=== PATIENT | male | born 1930 | race Caucasian/White ===

== ENCOUNTER 2017-03-13 17:21 | Inpatient (IN) | payer MEDICARE ==
[~2017-03-13] VITALS: Ht 185.4 cm; Wt 83.0 kg
[2017-03-13] MEDS ORDERED: IV NORMAL SALINE 1000ML BAG 1,000 ML IV SCH (17:46)
[2017-03-13] MEDS ORDERED: ONDANSETRON PF 4 MG/2 ML VIAL. IV ONE (18:00)
[2017-03-13] MEDS ORDERED: IPRATRPIUM/ALBUTEROL 0.5/2.5MG 3 ML NEBU. NEB ONE (18:00)
[2017-03-13 18:01] LABS: BASO % 0 % (0-3); EOS % 0 % (0-3); HEMATOCRIT 36.3 % (39.0-53.0); HEMOGLOBIN 11.7 g/dL (13.0-17.5); LYMPH # 0.5 x10^3/uL (1.0-4.8); LYMPH % 3 % (24-48); MEAN CORPUSCULAR HEMOGLOBIN 31 pg (25-35); MEAN CORPUSCULAR HGB CONC 32 g/dL (31-37); MEAN CORPUSCULAR VOLUME 95 fL (79-100); MONO % 4 % (0-9); NEUT % 93 % (31-73); PLATELET COUNT 184 x10^3/uL (140-400); RED BLOOD COUNT 3.82 x10^6/uL (4.30-5.70); RED CELL DISTRIBUTION WIDTH 14.9 % (11.5-14.5); WHITE BLOOD COUNT 14.8 x10^3/uL (4.0-11.0)
--- NOTE | 2017-03-13 18:08 | EKG ---
[facility] [address] [place] [address] Test Date: 2017-03-13 Test Time: 18:05:19 Pat Name: MONIQUE COFFEY Department: Room: Gender: Male Die Turner: : 1930 Requested By: VIVIANA LEHMAN Order Number: [id number] Reading MD: Shannon Russell Measurements Intervals [place] Rate: 104 P: -56 WV: 124 QRS: 81 QRSD: 90 T: 76 QT: 334 QTc: 445 Interpretive Statements NORMAL ECG RI6.01 No previous ECG available for comparison Electronically Signed On 03-16-2017 17:43:51 CDT by Shannon Russell
[2017-03-13 18:12] LABS: PROTHROMBIN TIME PATIENT 12.3 SEC (11.7-14.0)
[2017-03-13 18:14] LABS: CALCIUM 9.1 mg/dL (8.5-10.1); CREATININE 1.3 mg/dL (0.7-1.3); GFR 52.3; POTASSIUM 3.3 mmol/L (3.5-5.1)
[2017-03-13 18:19] LABS: ALBUMIN 3.6 g/dL (3.4-5.0); TOTAL BILIRUBIN 0.4 mg/dL (0.2-1.0); TOTAL PROTEIN 7.3 g/dL (6.4-8.2)
[2017-03-13 18:26] LABS: HCO3 ABG 30 mmol/L (21-28); PCO2 ABG 47 mmHg (35-46); PH ABG 7.42 (7.35-7.45); PO2 ABG 92 mmHg (65-108); SAT O2 ABG 97 % (92-99)
[2017-03-13 18:27] LABS: FIO2 ABG 100
[2017-03-13] MEDS ORDERED: IOHEXOL 300 MG/ML 75 ML VIAL IV ONE (18:30)
[2017-03-13 18:38] LABS: PLT ESTIMATE ADEQUATE (ADEQUATE)
[2017-03-13] MEDS ORDERED: levOFLOXacin PER PHARMACY 1 EACH EACH MC PRN (19:00)
[2017-03-13] MEDS ORDERED: ONDANSETRON PF 4 MG/2 ML VIAL. IV PRN (19:30)
[2017-03-13] MEDS ORDERED: MORPHINE SULFATE 2 MG/ML DISP.SYRIN. IV PRN (19:30)
[2017-03-13] MEDS ORDERED: ACETAMINOPHEN 325 MG TABLET. PO PRN (19:30)
[2017-03-13] MEDS: IPRATRPIUM/ALBUTEROL 0.5/2.5MG 3 ML NEBU. NEB SCH (20:00)
--- NOTE | 2017-03-13 20:03 | RAD ---
PROCEDURE CT study of the chest with contrast HISTORY Abnormal chest x-ray. History of lung cancer. Hypoxia. TECHNIQUE After IV infusion of 60 cc of Omnipaque 300, helical CT scanning of the chest was performed. One or more of the following individualized dose reduction techniques were utilized for this study: 1. Automated exposure control 2. Adjustment of the mA and/or kV according to patient size 3. Use of iterative reconstruction technique COMPARISON None available. FINDINGS The left hilum is obscured due to lung infiltrate. Otherwise no abnormally enlarged mediastinal or right hilar lymphadenopathy is seen. No enlarged thoracic lymphadenopathy is seen. No focal aneurysmal dilatation of the thoracic aorta is seen. Heart size is normal. There is calcified atheromatous disease of the coronary arteries. No pericardial effusion is seen. Small hiatal hernia is evident. Right middle lobe and right lower lobe nodular lung infiltrates are seen. More prominent lung consolidation is seen within the posterior right lower lobe. There is atelectasis and cicatricial bronchiectasis of the anterior medial aspect of the left upper lobe. There is atelectasis and cicatricial bronchiectasis of the superior segment of the left lower lobe. There is associated retraction of the left hilum. There is volume loss on the left side.There is diffuse infiltrate involving the left apex which measures 50 Hounsfield units. This could represent collapsed lung or lung mass. This measures 8 centimeters in transverse dimension and 6.4 centimeters in vertical dimension and 8.7 centimeters in AP dimension. No osteolytic process is seen. No adrenal mass is evident. A small hiatal hernia is seen. IMPRESSION Left apical soft tissue thickening or mass with volume loss and retraction of the left hilum. 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 Nodular lung infiltrates are seen within the right middle lobe and right lower lobe with more prominent focus of lung consolidation within the posterior segment of the right lower lobe. This may represent pneumonia or aspiration pneumonitis. Metastatic disease is certainly possible as well. Calcified atheromatous disease of the coronary arteries. Small hiatal hernia. Electronically signed by: Luís Rose MD (March 13, 2017 20:02:14)
--- NOTE | 2017-03-13 21:05 | PHYS DOC ---
Past Medical History Past Medical History: Cancer, High Cholesterol, Hypertension, Other Additional Past Medical Histor: LUNG CA, ESOPHAGEAL STRICTURE Past Surgical History: Other Additional Past Surgical Histo: HERNIA, EXPLORATORY SURGERY CA, ESOPHAGEAL DILATION, Alcohol Use: Occasionally Drug Use: None Adult General Chief Complaint Chief Complaint: SHORTNESS OF BREATH HPI HPI Patient is a 87 year old male who presents with shortness of breath. The patient reports he had onset of symptoms about 1 hour prior to arrival with sweats/chills, shortness of breath at rest, occasional dry cough. He states earlier today he choked while eating eggs, felt like a piece of egg was caught in his throat during swallowing, experienced some subsequent coughing & no longer has foreign body sensation. He denies chest pain, abdominal pain, vomiting, lower extremity pain/swelling. Denies history of COPD or asthma, distant history of smoking & in remission from lung cancer, not dependent on home O2. Denies history of CAD or CHF. PCP is Dr. Perez. Review of Systems Review of Systems Constitutional: Reports fever & chills Eyes: Denies change in visual acuity HENT: Denies nasal congestion or sore throat Respiratory: Reports cough & shortness of breath Cardiovascular: Denies chest pain or edema GI: Denies abdominal pain, nausea, vomiting, or diarrhea : Denies dysuria Musculoskeletal: Denies back pain or joint pain Integument: Denies rash or skin lesions Neurologic: Denies headache, focal weakness or sensory changes Current Medications Current Medications Current Medications Medications (Trade) Dose Ordered Sig/Kanwal Start Time Stop Time Status Last Admin Dose Admin Albuterol/ Ipratropium (Duoneb) 3 ml 1X ONCE 03/13/17 18:00 03/13/17 18:01 DC 03/13/17 18:19 3 ML Iohexol (Omnipaque 300 Mg/ml) 75 ml 1X ONCE 03/13/17 18:30 03/13/17 18:31 DC Levofloxacin/ Dextrose 100 ml @ 100 mls/hr ONCE ONCE 03/13/17 19:00 03/13/17 19:59 DC 03/13/17 19:33 100 MLS/HR Levofloxacin/ Dextrose (Levaquin Per Pharmacy) 1 each PRN DAILY PRN 03/13/17 19:00 Metronidazole 100 ml @ 100 mls/hr 1X ONCE 03/13/17 19:00 03/13/17 19:59 UNV Ondansetron HCl (Zofran) 4 mg 1X ONCE 03/13/17 18:00 03/13/17 18:01 DC Sodium Chloride 1,000 ml @ 2,100 mls/hr Q29M 03/13/17 17:46 03/13/17 18:46 DC 03/13/17 18:30 2,100 MLS/HR Allergies Allergies Allergies Coded Allergies Type Severity Reaction Last Updated Verified Penicillins Allergy Unknown SWELLING 03/13/17 Yes Physical Exam Physical Exam Constitutional: Well developed, well nourished, no acute distress, non-toxic appearance. HENT: Normocephalic, atraumatic, bilateral external ears normal, oropharynx moist, nose normal. Eyes: conjunctiva normal, no discharge. Neck: supple, no stridor. Cardiovascular: tachycardic, regular, no murmurs, no edema. Lungs & Thorax: diminished especially in right base, no wheezing, no use of accessory muscles, able to speak in complete sentences, no respiratory distress. O2 sat in low 80s on room air with good waveform. Abdomen: soft, nontender, nondistended. Skin: Warm, dry, no erythema, no rash. Back: No tenderness. Extremities: No tenderness, no edema. no calf tenderness or swelling Neurologic: Alert and oriented X 3, no focal deficits noted. Psychologic: Affect normal, judgement normal, mood normal. Current Patient Data Vital Signs Vital Signs Date Time Temp Pulse Resp B/P (MAP) Pulse Ox O2 Delivery O2 Flow Rate FiO2 03/13/17 19:00 102 21 154/70 (98) 100 NonRebreather Mask 10.0 03/13/17 17:30 100.5 100.5 Lab Values Laboratory Tests Test 03/13/17 17:45 03/13/17 18:10 White Blood Count 14.8 x10^3/uL (4.0-11.0) H Red Blood Count 3.82 x10^6/uL (4.30-5.70) L Hemoglobin 11.7 g/dL (13.0-17.5) L Hematocrit 36.3 % (39.0-53.0) L Mean Corpuscular Volume 95 fL (79-100) Mean Corpuscular Hemoglobin 31 pg (25-35) Mean Corpuscular Hemoglobin Concent 32 g/dL (31-37) Red Cell Distribution Width 14.9 % (11.5-14.5) H Platelet Count 184 x10^3/uL (140-400) Neutrophils (%) (Auto) 93 % (31-73) H Lymphocytes (%) (Auto) 3 % (24-48) L Monocytes (%) (Auto) 4 % (0-9) Eosinophils (%) (Auto) 0 % (0-3) Basophils (%) (Auto) 0 % (0-3) Neutrophils # (Auto) 13.7 x10^3uL (1.8-7.7) H Lymphocytes # (Auto) 0.5 x10^3/uL (1.0-4.8) L Monocytes # (Auto) 0.5 x10^3/uL (0.0-1.1) Eosinophils # (Auto) 0.0 x10^3/uL (0.0-0.7) Basophils # (Auto) 0.0 x10^3/uL (0.0-0.2) Segmented Neutrophils % 82 % (35-66) H Band Neutrophils % 11 % (0-9) H Lymphocytes % 1 % (24-48) L Monocytes % 6 % (0-10) Platelet Estimate Adequate (ADEQUATE) Prothrombin Time 12.3 SEC (11.7-14.0) Prothrombin Time INR 1.0 (0.8-1.1) PTT 28 SEC (24-38) Sodium Level 137 mmol/L (136-145) Potassium Level 3.3 mmol/L (3.5-5.1) L Chloride Level 99 mmol/L (98-107) Carbon Dioxide Level 31 mmol/L (21-32) Anion Gap 7 (6-14) Blood Urea Nitrogen 25 mg/dL (8-26) Creatinine 1.3 mg/dL (0.7-1.3) Estimated GFR (Cockcroft-Gault) 52.3 BUN/Creatinine Ratio 19 (6-20) Glucose Level 138 mg/dL (70-99) H Lactic Acid Level 2.0 mmol/L (0.4-2.0) Calcium Level 9.1 mg/dL (8.5-10.1) Total Bilirubin 0.4 mg/dL (0.2-1.0) Aspartate Amino Transferase (AST) 15 U/L (15-37) Alanine Aminotransferase (ALT) 19 U/L (16-63) Alkaline Phosphatase 91 U/L (46-116) Troponin I Quantitative < 0.017 ng/mL (0.000-0.055) IS-Abr-B-Type Natriuretic Peptide 145 pg/mL (0-449) Total Protein 7.3 g/dL (6.4-8.2) Albumin 3.6 g/dL (3.4-5.0) Albumin/Globulin Ratio 1.0 (1.0-1.7) O2 Saturation 97 % (92-99) Arterial Blood pH 7.42 (7.35-7.45) Arterial Blood pCO2 at Patient Temp 47 mmHg (35-46) H Arterial Blood pO2 at Patient Temp 92 mmHg (65-108) Arterial Blood HCO3 30 mmol/L (21-28) H Arterial Blood Base Excess 4 mmol/L (-3-3) H FiO2 100 Laboratory Tests 03/13/17 17:45 Laboratory Tests 03/13/17 17:45 EKG EKG interpreted by me: sinus tachycardia rate 104, no acute ST/T wave changes, normal intervals, no ectopy, artifact.[] Radiology/Procedures Radiology/Procedures PROCEDURE: CT CHEST W/CONTRAST PROCEDURE CT study of the chest with contrast HISTORY Abnormal chest x-ray. History of lung cancer. Hypoxia. TECHNIQUE After IV infusion of 60 cc of Omnipaque 300, helical CT scanning of the chest was performed. One or more of the following individualized dose reduction techniques were utilized for this study: 1. Automated exposure control 2. Adjustment of the mA and/or kV according to patient size 3. Use of iterative reconstruction technique COMPARISON None available. FINDINGS The left hilum is obscured due to lung infiltrate. Otherwise no abnormally enlarged mediastinal or right hilar lymphadenopathy is seen. No enlarged thoracic lymphadenopathy is seen. No focal aneurysmal dilatation of the thoracic aorta is seen. Heart size is normal. There is calcified atheromatous disease of the coronary arteries. No pericardial effusion is seen. Small hiatal hernia is evident. Right middle lobe and right lower lobe nodular lung infiltrates are seen. More prominent lung consolidation is seen within the posterior right lower lobe. There is atelectasis and cicatricial bronchiectasis of the anterior medial aspect of the left upper lobe. There is atelectasis and cicatricial bronchiectasis of the superior segment of the left lower lobe. There is associated retraction of the left hilum. There is volume loss on the left side.There is diffuse infiltrate involving the left apex which measures 50 Hounsfield units. This could represent collapsed lung or lung mass. This measures 8 centimeters in transverse dimension and 6.4 centimeters in vertical dimension and 8.7 centimeters in AP dimension. No osteolytic process is seen. No adrenal mass is evident. A small hiatal hernia is seen. IMPRESSION Left apical soft tissue thickening or mass with volume loss and retraction of the left hilum. 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 Nodular lung infiltrates are seen within the right middle lobe and right lower lobe with more prominent focus of lung consolidation within the posterior segment of the right lower lobe. This may represent pneumonia or aspiration pneumonitis. Metastatic disease is certainly possible as well. Calcified atheromatous disease of the coronary arteries. Small hiatal hernia. Electronically signed by: Kam Rose MD (March 13, 2017 20:02:14) DICTATED and SIGNED BY: KAM ROSE MD DATE: 03/13/172000 CXR: interpreted by me: RLL infiltrate, no cardiomegaly, volume loss to JONNIE, no pneumothorax.[] Course & Med Decision Making Course & Med Decision Making Pertinent Labs and Imaging studies reviewed. (See chart for details) Patient presents with shortness of breath, hypoxic on room air, febrile & tachycardic. Meets criteria for sepsis with infiltrate on CXR. Would be very short timeframe to develop aspiration pneumonia, but may have had previous episodes of similar events, & certainly warrants antibiotics with sepsis criteria. Obtained blood cultures & lactic acid, gave flagyl & levaquin. No recent hospitalizations, lives at home, has PCN allergy. O2 sats improving, had to initially be placed on NRB but able to be weaned to O2 4-6L by NC, never in any distress. Abnormal CXR shows infiltrate, obtained CT chest with results as above. Recommended admission to the hospital for further evaluation & treatment; he agrees with plan of care. Discussed with Dr. Edwards who agrees to admit to inpatient status. The patient is admitted in stable condition. [] Dragon Disclaimer Dragon Disclaimer This electronic medical record was generated, in whole or in part, using a voice recognition dictation system. Departure Departure Impression: Primary Impression: Sepsis Additional Impressions: Community acquired bacterial pneumonia Aspiration pneumonia Fever Tachycardia Leukocytosis Hypokalemia Referrals: HELENE PEREZ (PCP) Problem Qualifiers VIVIANA LEHMAN MD March 13, 2017 21:05
[2017-03-13 21:14] LABS: BILIRUBIN,URINE NEGATIVE (NEG); GLUCOSE,URINE NEGATIVE (NEG); NITRITE,URINE NEGATIVE (NEG); PH,URINE 5.5; PROTEIN,URINE NEGATIVE (NEG-TRACE); UROBILINOGEN,URINE 0.2 mg/dL (0.2 mg/dL)
[2017-03-13 21:23] LABS: BACTERIA,URINE 0 /HPF (0-FEW); RBC,URINE 0 /HPF (0-2)
[2017-03-13 21:30] VITALS: BP 130/59
[2017-03-13] MEDS: IV NORMAL SALINE 1000ML BAG 1,000 ML IV SCH (22:00)
[2017-03-13] MEDS ORDERED: LOVA20TA2 PO (22:50)
[2017-03-13] MEDS ORDERED: HCTZ PO (22:50)
[2017-03-13] MEDS ORDERED: AMLO10TA4 PO (22:50)
[2017-03-13] MEDS ORDERED: OMEP20CA9 PO (22:50)
[2017-03-13] MEDS ORDERED: POTASSIUM CHLORIDE 20 MEQ/15 ML ORAL LIQUID. PO ONE (23:00)
[2017-03-13 23:01] VITALS: BP 94/56
--- NOTE | 2017-03-14 00:18 | ACF ---
Admission Forms Criteria SEPSIS and OTHER FEBRILE ILLNESS, W/O FOCAL INFECTION Clinical Indications for Admission to Inpatient Care ( Place 'X' for any and all applicable criteria): Admission is indicated for ANY ONE of the following (1)(2)(3)(4): [ ] I. Bacteremia [X]II. Suspected or identified specific infection requiring hospitalization (eg, meningitis, endocarditis) [ ]III. Hemodynamic instability [ ]IV. Altered mental status [ ]V. Failure or unavailability of outpatient antimicrobial treatment [ ]. Hypoxemia [ ]VII. Seizures [ ]VIII. High-risk febrile neutropenia [ ]IX. Need for parenteral antibiotic in patient who is likely to abuse vascular access device (eg, injection drug user) [A](7) [ ]X. Temperature greater than 104.9 degrees F (40.5 degrees C) (oral) [ ]XI. Inpatient admission required rather than observation care because of ANY ONE of the following: [ ]1) Specific infection identified that is too severe for outpatient treatment or observation care trial [ ]2) Metabolic disorder (eg, hypoglycemia, hyperglycemia, metabolic acidosis) that is severe or persistent [ ]3) Temperature greater than 103.1 degrees F (39.5 degrees C) ( oral) that is not responsive to observation care treatment [ ]4) IV fluid to replace significant ongoing (eg, for over 24 hours) losses (> 3 L/m2 per day) [ ]5) Supplemental oxygen or respiratory treatments for over 24 hours that is performable only in acute inpatient setting [ ]6) Parenteral nutrition regimen need that must be implemented on inpatient basis [ ]7) Strict or protective (eg, laminar flow) isolation [ ]8) Other condition, treatment or monitoring requiring inpatient admission Extended stay beyond goal length of stay may be needed for(1)(3) [ ]a) Sepsis or septic shock(22) [ ]b) Positive blood cultures [ ]c) Insufficient oral intake [ ]d) High-risk febrile neutropenia(29)(30) [ ]e) Continued fever and clinical instability [ ]f) Clinically active comorbid illness (e.g,heart failure, renal failure , diabetes) The original [employer]ickman[employer] content created by Breann V[employer]quez has been revised. The portions of the content which have been revised are identified through the use of italic text or in bold, and Breann Vásquez has neither reviewed nor approved the modified material. All other unmodified content is copyright [facility]. Please see references footnoted in the original [facility] edition 2016 Admission Criteria Met?: Yes BETTY PÉREZ March 14, 2017 00:18
[2017-03-14 03:21] VITALS: BP 115/54
[2017-03-14] MEDS: IV NORMAL SALINE 1000ML BAG 1,000 ML IV SCH ×2 (05:23→15:23)
[2017-03-14 07:30] VITALS: BP 125/65
[2017-03-14] MEDS: IPRATRPIUM/ALBUTEROL 0.5/2.5MG 3 ML NEBU. NEB SCH ×4 (07:49→19:31)
--- NOTE | 2017-03-14 08:07 | RAD ---
Portable chest, 03/13/2017: History: Shortness of breath No previous chest radiographs are available at this time for comparison purposes. The patient is rotated to the right. The heart size is normal. A surgical clip is projected over the left upper chest. There is a moderate left apical opacity with superior retraction of the left hilum. No underlying rib destruction is seen. There are scattered linear parenchymal opacities in the lungs compatible with scars. Moderate patchy right basilar infiltrate is evident. No pleural fluid is seen. The bony structures are demineralized. IMPRESSION: 1. Moderate left apical opacity compatible with neoplasm, associated consolidation and/or scarring in this patient with the history of lung cancer. Comparison with previous chest radiographs if available would be most helpful. 2. Moderate patchy right basilar infiltrate suggesting pneumonia.
[2017-03-14] MEDS ORDERED: ONDANSETRON PF 4 MG/2 ML VIAL. IV PRN (09:02)
[2017-03-14] MEDS ORDERED: guaiFENesin DM 200MG/20MG 10 ML SYRUP PO PRN (09:15)
--- NOTE | 2017-03-14 10:31 | PDOC1 ---
History and Physical Date of Admission Date of Admission DATE: 03/14/17 TIME: 10:28 Identification/Chief Complaint Chief Complaint cough, soa, chills at home Problems: Source Source: Caregiver, Chart review, Patient History of Present Illness History of Present Illness 87 y.o male with good ADLs and IADLs, son lives with him at his home, went tO ER last night bec of above CC. Found to have pNA on CXR and CT scan. Feels better, NOw wants to go home, HAs not been seen yet by pulmo, no PT yet,. Denies O2 at home, ex smoker quit 30-40b yrs ago. WBC 14.8, K 3,.3, rest of labs ok CXR I have personally reviewed VS here ok, afebrile. HAs not ambulated yet Past Medical History Cardiovascular: HTN, Hyperlipidemia GI: Other (esophageal stricture) Heme/Onc: Cancer Past Surgical History Past Surgical History: Hernia Repair, Other (esophageal diltn) Family History Family History: Heart Disease, Hypertension Social History Smoke: Quit ALCOHOL: none Drugs: None Current Problem List Problem List Problems Medical Problems: (1) Aspiration pneumonia Status: Acute (2) Community acquired bacterial pneumonia Status: Acute (3) Fever Status: Acute (4) Hypokalemia Status: Acute (5) Leukocytosis Status: Acute (6) Sepsis Status: Acute (7) Tachycardia Status: Acute Problems: Current Medications Current Medications Current Medications Albuterol/ Ipratropium (Duoneb) 3 ml 1X ONCE NEB Last administered on 18:19; Start 03/13/17 at 18:00; Stop 03/13/17 at 18:01; Status DC Ondansetron HCl (Zofran) 4 mg 1X ONCE IV ; Start 03/13/17 at 18:00; Stop at 18:01; Status DC Sodium Chloride 1,000 ml @ 2,100 mls/hr Q29M IV Last administered on 03/13/17 18:30; Start 03/13/17 at 17:46; Stop 03/13/17 at 18:46; Status DC Iohexol (Omnipaque 300 Mg/ml) 75 ml 1X ONCE IV ; Start 03/13/17 at 18:30; Stop 03/13/17 at 18:31; Status DC Metronidazole 100 ml @ 100 mls/hr 1X ONCE IV Last administered on 03/13/17 20 :37; Start 03/13/17 at 19:00; Stop 03/13/17 at 19:59; Status DC Metronidazole 100 ml @ 100 mls/hr 1X ONCE IV ; Start 03/13/17 at 19:00; Stop at 19:59; Status UNV Levofloxacin/ Dextrose (Levaquin Per Pharmacy) 1 each PRN DAILY PRN MC SEE COMMENTS; Start 03/13/17 at 19:00 Levofloxacin/ Dextrose 100 ml @ 100 mls/hr ONCE ONCE IV Last administered on 03/13/17 19:33; Start 03/13/17 at 19:00; Stop 03/13/17 at 19:59; Status DC Levofloxacin/ Dextrose 50 ml @ 50 mls/hr Q24H IV ; Start 03/14/17 at 21:00 Ondansetron HCl (Zofran) 4 mg PRN Q8HRS PRN IV NAUSEA/VOMITING; Start 03/13/17 at 19:30; Stop 03/14/17 at 09:03; Status DC Morphine Sulfate 2 mg PRN Q2HR PRN IV PAIN; Start 03/13/17 at 19:30; Stop at 19:29 Sodium Chloride 1,000 ml @ 100 mls/hr Q10H IV Last administered on 03/14/17 05 :23; Start 03/13/17 at 19:23; Stop 03/14/17 at 19:22 Acetaminophen (Tylenol) 650 mg PRN Q4HRS PRN PO FEVER; Start 03/13/17 at 19:30; Stop 03/14/17 at 19:29 Albuterol/ Ipratropium (Duoneb) 3 ml RTQID NEB Last administered on 03/14/17 07 :49; Start 03/13/17 at 20:00; Stop 03/14/17 at 19:59 Potassium Chloride (KCl Oral Soln) 40 meq 1X ONCE PO Last administered on 23:08; Start 03/13/17 at 23:00; Stop 03/13/17 at 23:01; Status DC Ondansetron HCl (Zofran) 4 mg PRN Q6HRS PRN IV NAUSEA/VOMITING; Start 03/14/17 at 09:02; Stop 03/15/17 at 09:01 Amlodipine Besylate (Norvasc) 10 mg DAILY PO ; Start 03/14/17 at 10:00 Atorvastatin Calcium (Lipitor) 5 mg QHS PO ; Start 03/14/17 at 21:00 Pantoprazole Sodium (Protonix) 40 mg DAILYAC PO ; Start 03/14/17 at 11:30 Hydrochlorothiazide (Microzide) 12.5 mg DAILY PO ; Start 03/14/17 at 10:00 Guaifenesin (Robitussin Dm) 10 ml PRN Q6HRS PRN PO COUGH; Start 03/14/17 at 09: 15 Active Scripts Active Reported [Hctz] 12.5 Mg PO DAILY Omeprazole 20 Mg Capsule.dr 1 Cap PO DAILY Lovastatin 20 Mg Tablet 1 Tab PO DAILY Norvasc (Amlodipine Besylate) 10 Mg Tablet 10 Mg PO DAILY Allergies Allergies: Coded Allergies: Penicillins (Verified Allergy, Unknown, SWELLING, 03/13/17) ROS General: YES: Chills PSYCHOLOGICAL ROS: No: Anxiety, Behavioral Disorder, Concentration difficultie , Decreased libido, Depression, Disorientation, Hallucinations, Hostility, Irritablity, Memory difficulties, Mood Swings, Obsessive thoughts, Physical abuse, Sexual abuse, Sleep disturbances, Suicidal ideation, Other Eyes: No Blurry vision, No Decreased vision, No Double vision, No Dry eyes, No Excessive tearing, No Eye Pain, No Itchy Eyes, No Loss of vision, No Photophobia , No Scotomata, No Uses contacts, No Uses glasses, No Other ALLERGY AND IMMUNOLOGY: No: Hives, Insect Bite Sensitivity, Itchy/Watery Eyes, Nasal Congestion, Post Nasal Drip, Seasonal Allergies, Other Hematological and Lymphatic: No: Bleeding Problems, Blood Clots, Blood Transfusions, Brusing, Night Sweats, Pallor, Swollen Lymph Nodes, Other ENDOCRINE: No: Breast Changes, Galactorrhea, Hair Pattern Changes, Hot Flashes , Malaise/lethargy, Mood Swings, Palpitations, Polydipsia/polyuria, Skin Changes , Temperature Intolerance, Unexpected Weight Changes, Other Breast: No New/Changing Breast Lumps, No Nipple changes, No Nipple discharge, No Other Respiratory: YES: Cough Cardiovascular: No Chest Pain, No Palpitations, No Orthopnea, No Paroxysmal Noc. Dyspnea, No Edema, No Lt Headedness, No Other Gastrointestinal: No Nausea, No Vomiting, No Abdominal Pain, No Diarrhea, No Constipation, No Melena, No Hematochezia, No Other Genitourinary: No Dysuria, No Frequency, No Incontinence, No Hematuria, No Retention, No Discharge, No Urgency, No Pain, No Flank Pain, No Other, No , No , No , No , No , No , No Musculoskeletal: No Gait Disturbance, No Joint Pain, No Joint Stiffness, No Joint Swelling, No Muscle Pain, No Muscular Weakness, No Pain In:, No Swelling In:, No Other Neurological: No Behavorial Changes, No Bowel/Bladder ControlChng, No Confusion , No Dizziness, No Gait Disturbance, No Headaches, No Impaired Coord/balance, No Memory Loss, No Numbness/Tingling, No Seizures, No Speech Problems, No Tremors, No Visual Changes, No Weakness, No Other Skin: No Dry Skin, No Eczema, No Hair Changes, No Lumps, No Mole Changes, No Mottling, No Nail Changes, No Pruritus, No Rash, No Skin Lesion Changes, No Other, No Acne Physical Exam General: Alert, Oriented X3, Cooperative, No acute distress HEENT: Atraumatic, PERRLA Lungs: Normal air movement, Other (no rales, rhonchi, wheezing) Breasts: Normal Abdomen: Normal bowel sounds, Soft, No tenderness, No hepatosplenomegaly, No masses Rectal Exam: not examined, mass PELVIC: Nml ext genitalia Extremities: No clubbing, No cyanosis, No edema, Normal pulses, No tenderness/ swelling Skin: No rashes, No breakdown, No significant lesion Neuro: Normal gait, Normal speech, Strength at 5/5 X4 ext, Normal tone, Sensation intact, Cranial nerves 3-12 NL, Reflexes 2+ Psych/Mental Status: Mental status NL, Mood NL Vitals Vitals Vital Signs Date Time Temp Pulse Resp B/P (MAP) Pulse Ox O2 Delivery O2 Flow Rate FiO2 03/14/17 07:49 88 Nasal Cannula 1.0 03/14/17 07:30 98.1 102 21 125/65 (85) 98.1 Labs Labs Laboratory Tests Test 03/13/17 17:45 03/13/17 18:10 03/13/17 19:46 03/13/17 21:05 White Blood Count 14.8 x10^3/uL (4.0-11.0) Red Blood Count 3.82 x10^6/uL (4.30-5.70) Hemoglobin 11.7 g/dL (13.0-17.5) Hematocrit 36.3 % (39.0-53.0) Mean Corpuscular Volume 95 fL (79-100) Mean Corpuscular Hemoglobin 31 pg (25-35) Mean Corpuscular Hemoglobin Concent 32 g/dL (31-37) Red Cell Distribution Width 14.9 % (11.5-14.5) Platelet Count 184 x10^3/uL (140-400) Neutrophils (%) (Auto) 93 % (31-73) Lymphocytes (%) (Auto) 3 % (24-48) Monocytes (%) (Auto) 4 % (0-9) Eosinophils (%) (Auto) 0 % (0-3) Basophils (%) (Auto) 0 % (0-3) Neutrophils # (Auto) 13.7 x10^3uL (1.8-7.7) Lymphocytes # (Auto) 0.5 x10^3/uL (1.0-4.8) Monocytes # (Auto) 0.5 x10^3/uL (0.0-1.1) Eosinophils # (Auto) 0.0 x10^3/uL (0.0-0.7) Basophils # (Auto) 0.0 x10^3/uL (0.0-0.2) Segmented Neutrophils % 82 % (35-66) Band Neutrophils % 11 % (0-9) Lymphocytes % 1 % (24-48) Monocytes % 6 % (0-10) Platelet Estimate Adequate (ADEQUATE) Prothrombin Time 12.3 SEC (11.7-14.0) Prothromb Time International Ratio 1.0 (0.8-1.1) Activated Partial Thromboplast Time 28 SEC (24-38) Sodium Level 137 mmol/L (136-145) Potassium Level 3.3 mmol/L (3.5-5.1) Chloride Level 99 mmol/L (98-107) Carbon Dioxide Level 31 mmol/L (21-32) Anion Gap 7 (6-14) Blood Urea Nitrogen 25 mg/dL (8-26) Creatinine 1.3 mg/dL (0.7-1.3) Estimated GFR (Cockcroft-Gault) 52.3 BUN/Creatinine Ratio 19 (6-20) Glucose Level 138 mg/dL (70-99) Lactic Acid Level 2.0 mmol/L (0.4-2.0) 1.4 mmol/L (0.4-2.0) Calcium Level 9.1 mg/dL (8.5-10.1) Total Bilirubin 0.4 mg/dL (0.2-1.0) Aspartate Amino Transf (AST/SGOT) 15 U/L (15-37) Alanine Aminotransferase (ALT/SGPT) 19 U/L (16-63) Alkaline Phosphatase 91 U/L (46-116) Troponin I Quantitative < 0.017 ng/mL (0.000-0.055) UL-Ywc-N-Type Natriuretic Peptide 145 pg/mL (0-449) Total Protein 7.3 g/dL (6.4-8.2) Albumin 3.6 g/dL (3.4-5.0) Albumin/Globulin Ratio 1.0 (1.0-1.7) O2 Saturation 97 % (92-99) Arterial Blood pH 7.42 (7.35-7.45) Arterial Blood pCO2 at Patient Temp 47 mmHg (35-46) Arterial Blood pO2 at Patient Temp 92 mmHg (65-108) Arterial Blood HCO3 30 mmol/L (21-28) Arterial Blood Base Excess 4 mmol/L (-3-3) FiO2 100 Urine Collection Type Unknown Urine Color Yellow Urine Clarity Clear Urine pH 5.5 Urine Specific [place] 1.025 Urine Protein Negative mg/dL (NEG-TRACE) Urine Glucose (UA) Negative mg/dL (NEG) Urine Ketones (Stick) Negative mg/dL (NEG) Urine Blood Negative (NEG) Urine Nitrite Negative (NEG) Urine Bilirubin Negative (NEG) Urine Urobilinogen Dipstick 0.2 mg/dL (0.2 mg/dL) Urine Leukocyte Esterase Negative (NEG) Urine RBC 0 /HPF (0-2) Urine WBC 1-4 /HPF (0-4) Urine Bacteria 0 /HPF (0-FEW) Urine Hyaline Casts Few /HPF Urine Mucus Mod /LPF Test 03/14/17 01:15 03/14/17 07:10 Troponin I Quantitative 0.020 ng/mL (0.000-0.055) < 0.017 ng/mL (0.000-0.055) Laboratory Tests Test 03/13/17 17:45 03/13/17 18:10 03/13/17 19:46 03/13/17 21:05 White Blood Count 14.8 x10^3/uL (4.0-11.0) Red Blood Count 3.82 x10^6/uL (4.30-5.70) Hemoglobin 11.7 g/dL (13.0-17.5) Hematocrit 36.3 % (39.0-53.0) Mean Corpuscular Volume 95 fL (79-100) Mean Corpuscular Hemoglobin 31 pg (25-35) Mean Corpuscular Hemoglobin Concent 32 g/dL (31-37) Red Cell Distribution Width 14.9 % (11.5-14.5) Platelet Count 184 x10^3/uL (140-400) Neutrophils (%) (Auto) 93 % (31-73) Lymphocytes (%) (Auto) 3 % (24-48) Monocytes (%) (Auto) 4 % (0-9) Eosinophils (%) (Auto) 0 % (0-3) Basophils (%) (Auto) 0 % (0-3) Neutrophils # (Auto) 13.7 x10^3uL (1.8-7.7) Lymphocytes # (Auto) 0.5 x10^3/uL (1.0-4.8) Monocytes # (Auto) 0.5 x10^3/uL (0.0-1.1) Eosinophils # (Auto) 0.0 x10^3/uL (0.0-0.7) Basophils # (Auto) 0.0 x10^3/uL (0.0-0.2) Segmented Neutrophils % 82 % (35-66) Band Neutrophils % 11 % (0-9) Lymphocytes % 1 % (24-48) Monocytes % 6 % (0-10) Platelet Estimate Adequate (ADEQUATE) Prothrombin Time 12.3 SEC (11.7-14.0) Prothromb Time International Ratio 1.0 (0.8-1.1) Activated Partial Thromboplast Time 28 SEC (24-38) Sodium Level 137 mmol/L (136-145) Potassium Level 3.3 mmol/L (3.5-5.1) Chloride Level 99 mmol/L (98-107) Carbon Dioxide Level 31 mmol/L (21-32) Anion Gap 7 (6-14) Blood Urea Nitrogen 25 mg/dL (8-26) Creatinine 1.3 mg/dL (0.7-1.3) Estimated GFR (Cockcroft-Gault) 52.3 BUN/Creatinine Ratio 19 (6-20) Glucose Level 138 mg/dL (70-99) Lactic Acid Level 2.0 mmol/L (0.4-2.0) 1.4 mmol/L (0.4-2.0) Calcium Level 9.1 mg/dL (8.5-10.1) Total Bilirubin 0.4 mg/dL (0.2-1.0) Aspartate Amino Transf (AST/SGOT) 15 U/L (15-37) Alanine Aminotransferase (ALT/SGPT) 19 U/L (16-63) Alkaline Phosphatase 91 U/L (46-116) Troponin I Quantitative < 0.017 ng/mL (0.000-0.055) SJ-Yms-X-Type Natriuretic Peptide 145 pg/mL (0-449) Total Protein 7.3 g/dL (6.4-8.2) Albumin 3.6 g/dL (3.4-5.0) Albumin/Globulin Ratio 1.0 (1.0-1.7) O2 Saturation 97 % (92-99) Arterial Blood pH 7.42 (7.35-7.45) Arterial Blood pCO2 at Patient Temp 47 mmHg (35-46) Arterial Blood pO2 at Patient Temp 92 mmHg (65-108) Arterial Blood HCO3 30 mmol/L (21-28) Arterial Blood Base Excess 4 mmol/L (-3-3) FiO2 100 Urine Collection Type Unknown Urine Color Yellow Urine Clarity Clear Urine pH 5.5 Urine Specific [place] 1.025 Urine Protein Negative mg/dL (NEG-TRACE) Urine Glucose (UA) Negative mg/dL (NEG) Urine Ketones (Stick) Negative mg/dL (NEG) Urine Blood Negative (NEG) Urine Nitrite Negative (NEG) Urine Bilirubin Negative (NEG) Urine Urobilinogen Dipstick 0.2 mg/dL (0.2 mg/dL) Urine Leukocyte Esterase Negative (NEG) Urine RBC 0 /HPF (0-2) Urine WBC 1-4 /HPF (0-4) Urine Bacteria 0 /HPF (0-FEW) Urine Hyaline Casts Few /HPF Urine Mucus Mod /LPF Test 03/14/17 01:15 03/14/17 07:10 Troponin I Quantitative 0.020 ng/mL (0.000-0.055) < 0.017 ng/mL (0.000-0.055) VTE Prophylaxis Ordered VTE Prophylaxis Devices: Yes VTE Pharmacological Prophylaxi: Yes Assessment/Plan Assessment/Plan 1, CAP 2. SIRS NO Sepsis POA 3, Acute respi failure POA, resolved sec to # 1 4. HTN, dyslipidemia, hx esoph CA, ex smoker - all chronci stable PLAN: Nebs, cough med, pulmo ANtibiotics PT/OT OK to dc tele per pt request Resume home meds Montior leukocytosis Possible home papito? - per pt request if does well LJ SINGLETARY MD March 14, 2017 10:31
[2017-03-14 11:00] VITALS: BP 131/57
[2017-03-14] MEDS: PANTOPRAZOLE 40 MG TABLET.DR. PO SCH (11:50)
[2017-03-14] MEDS: hydroCHLOROthiazide 12.5 MG CAPSULE PO SCH (11:50)
[2017-03-14] MEDS: amLODIPine BESYLATE 10 MG TABLET PO SCH (11:50)
--- NOTE | 2017-03-14 13:51 | PDOC2 ---
GI CONSULT Reason For Consult: H/o esophageal stricture, failed swallow eval HPI: HPI: 87 y/o male admitted w/ pneumonia, possible aspiration. Had COMMUNITY OUTREACH MANAGER eval, felt to be GI-related. D/w COMMUNITY OUTREACH MANAGER, feels softer diet would be of benefit but compliance probably an issue. Reports h/o esophageal dilation 10-12 years ago w/o recurrent dysphagia until the past 1-2 months. [place] in oropharynx occasionally w/ dry meats (names chicken). Says most of the time he makes an effort to chew thoroughly and take his time eating. However, a bite of omelette was caught in his throat a few days ago, had to cough up. Additional h/o GERD, controlled w/ Prilosec MWF - used to take daily but has been weaning down x 3-4 months due to fear of adverse effects (says cancer). Denies n/v, abdominal pain, diarrhea, constipation, hematochezia/melena, weight loss, or change in appetite. Says last colonoscopy ~10 years ago was normal. Takes ASA 325mg 3 x weekly. PMH: PMH: lung cancer s/p chemo and radiation, HTN, HLD, ?esophageal stricture, GERD, right inguinal hernia repair FH: Family History: No pertinent hx Social History: Smoke: Quit ALCOHOL: none Drugs: None ROS: GEN: +chills HEENT: Denies blurred vision, sore throat CV: Denies chest pain RESP: +shortness of air, cough GI: Per HPI : Denies hematuria, dysuria ENDO: Denies weight changes NEURO: Denies confusion, dizziness MSK: Denies weakness, joint pain/swelling SKIN: Denies jaundice, pruritus Vitals: Vitals: Vital Signs Date Time Temp Pulse Resp B/P (MAP) Pulse Ox O2 Delivery O2 Flow Rate FiO2 03/14/17 11:50 84 131/57 03/14/17 11:29 97 Nasal Cannula 3.0 03/14/17 07:30 98.1 21 98.1 Labs: Labs: Laboratory Tests Test 03/13/17 17:45 03/13/17 18:10 03/13/17 19:46 03/13/17 21:05 White Blood Count 14.8 x10^3/uL (4.0-11.0) Red Blood Count 3.82 x10^6/uL (4.30-5.70) Hemoglobin 11.7 g/dL (13.0-17.5) Hematocrit 36.3 % (39.0-53.0) Mean Corpuscular Volume 95 fL (79-100) Mean Corpuscular Hemoglobin 31 pg (25-35) Mean Corpuscular Hemoglobin Concent 32 g/dL (31-37) Red Cell Distribution Width 14.9 % (11.5-14.5) Platelet Count 184 x10^3/uL (140-400) Neutrophils (%) (Auto) 93 % (31-73) Lymphocytes (%) (Auto) 3 % (24-48) Monocytes (%) (Auto) 4 % (0-9) Eosinophils (%) (Auto) 0 % (0-3) Basophils (%) (Auto) 0 % (0-3) Neutrophils # (Auto) 13.7 x10^3uL (1.8-7.7) Lymphocytes # (Auto) 0.5 x10^3/uL (1.0-4.8) Monocytes # (Auto) 0.5 x10^3/uL (0.0-1.1) Eosinophils # (Auto) 0.0 x10^3/uL (0.0-0.7) Basophils # (Auto) 0.0 x10^3/uL (0.0-0.2) Segmented Neutrophils % 82 % (35-66) Band Neutrophils % 11 % (0-9) Lymphocytes % 1 % (24-48) Monocytes % 6 % (0-10) Platelet Estimate Adequate (ADEQUATE) Prothrombin Time 12.3 SEC (11.7-14.0) Prothromb Time International Ratio 1.0 (0.8-1.1) Activated Partial Thromboplast Time 28 SEC (24-38) Sodium Level 137 mmol/L (136-145) Potassium Level 3.3 mmol/L (3.5-5.1) Chloride Level 99 mmol/L (98-107) Carbon Dioxide Level 31 mmol/L (21-32) Anion Gap 7 (6-14) Blood Urea Nitrogen 25 mg/dL (8-26) Creatinine 1.3 mg/dL (0.7-1.3) Estimated GFR (Cockcroft-Gault) 52.3 BUN/Creatinine Ratio 19 (6-20) Glucose Level 138 mg/dL (70-99) Lactic Acid Level 2.0 mmol/L (0.4-2.0) 1.4 mmol/L (0.4-2.0) Calcium Level 9.1 mg/dL (8.5-10.1) Total Bilirubin 0.4 mg/dL (0.2-1.0) Aspartate Amino Transf (AST/SGOT) 15 U/L (15-37) Alanine Aminotransferase (ALT/SGPT) 19 U/L (16-63) Alkaline Phosphatase 91 U/L (46-116) Troponin I Quantitative < 0.017 ng/mL (0.000-0.055) PJ-Sdh-O-Type Natriuretic Peptide 145 pg/mL (0-449) Total Protein 7.3 g/dL (6.4-8.2) Albumin 3.6 g/dL (3.4-5.0) Albumin/Globulin Ratio 1.0 (1.0-1.7) O2 Saturation 97 % (92-99) Arterial Blood pH 7.42 (7.35-7.45) Arterial Blood pCO2 at Patient Temp 47 mmHg (35-46) Arterial Blood pO2 at Patient Temp 92 mmHg (65-108) Arterial Blood HCO3 30 mmol/L (21-28) Arterial Blood Base Excess 4 mmol/L (-3-3) FiO2 100 Urine Collection Type Unknown Urine Color Yellow Urine Clarity Clear Urine pH 5.5 Urine Specific [place] 1.025 Urine Protein Negative mg/dL (NEG-TRACE) Urine Glucose (UA) Negative mg/dL (NEG) Urine Ketones (Stick) Negative mg/dL (NEG) Urine Blood Negative (NEG) Urine Nitrite Negative (NEG) Urine Bilirubin Negative (NEG) Urine Urobilinogen Dipstick 0.2 mg/dL (0.2 mg/dL) Urine Leukocyte Esterase Negative (NEG) Urine RBC 0 /HPF (0-2) Urine WBC 1-4 /HPF (0-4) Urine Bacteria 0 /HPF (0-FEW) Urine Hyaline Casts Few /HPF Urine Mucus Mod /LPF Test 03/14/17 01:15 03/14/17 07:10 Troponin I Quantitative 0.020 ng/mL (0.000-0.055) < 0.017 ng/mL (0.000-0.055) Allergies: Coded Allergies: Penicillins (Verified Allergy, Unknown, SWELLING, 03/13/17) Medications: Current Medications Medications (Trade) Dose Ordered Sig/Kanwal Route PRN Reason Start Time Stop Time Status Last Admin Dose Admin Albuterol/ Ipratropium (Duoneb) 3 ml 1X ONCE NEB 03/13/17 18:00 03/13/17 18:01 DC 03/13/17 18:19 Sodium Chloride 1,000 ml @ 2,100 mls/hr Q29M IV 03/13/17 17:46 03/13/17 18:46 DC 03/13/17 18:30 Metronidazole 100 ml @ 100 mls/hr 1X ONCE IV 03/13/17 19:00 03/13/17 19:59 DC 03/13/17 20:37 Levofloxacin/ Dextrose 100 ml @ 100 mls/hr ONCE ONCE IV 03/13/17 19:00 03/13/17 19:59 DC 03/13/17 19:33 Sodium Chloride 1,000 ml @ 100 mls/hr Q10H IV 03/13/17 19:23 03/14/17 19:22 03/14/17 05:23 Albuterol/ Ipratropium (Duoneb) 3 ml RTQID NEB 03/13/17 20:00 03/14/17 19:59 03/14/17 11:29 Potassium Chloride (KCl Oral Soln) 40 meq 1X ONCE PO 03/13/17 23:00 03/13/17 23:01 DC 03/13/17 23:08 Amlodipine Besylate (Norvasc) 10 mg DAILY PO 03/14/17 10:00 03/14/17 11:50 Pantoprazole Sodium (Protonix) 40 mg DAILYAC PO 03/14/17 11:30 03/14/17 11:50 Hydrochlorothiazide (Microzide) 12.5 mg DAILY PO 03/14/17 10:00 03/14/17 11:50 Imaging: Imaging: CXR IMPRESSION: 1. Moderate left apical opacity compatible with neoplasm, associated consolidation and/or scarring in this patient with the history of lung cancer. Comparison with previous chest radiographs if available would be most helpful. 2. Moderate patchy right basilar infiltrate suggesting pneumonia. Chest CT IMPRESSION Left apical soft tissue thickening or mass with volume loss and retraction of the left hilum. 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 Nodular lung infiltrates are seen within the right middle lobe and right lower lobe with more prominent focus of lung consolidation within the posterior segment of the right lower lobe. This may represent pneumonia or aspiration pneumonitis. Metastatic disease is certainly possible as well. Calcified atheromatous disease of the coronary arteries. Small hiatal hernia. PE: GEN: NAD HEENT: Atraumatic, PERRL LUNGS: decreased anteriorly, nasal cannula HEART: RRR +murm ABD: NABS, S/ND/NT EXTREMITY: No edema SKIN: No rashes, no jaundice NEURO/PSYCH: A & O 3 A/P: A/P: CAP -on Levaquin Dysphagia -h/o esophageal dilation 10-12 years ago -recurrent symptoms x 1-2 months, felt w/ dry meat, recently had to cough up a bite of omelette -?aspiration, COMMUNITY OUTREACH MANAGER feels GI-related GERD -previously on PPI QD, has weaned down to MWF due to concern for adverse effects CRC screen -reports normal colonoscopy ~10 years ago H/o lung cancer -radiation/chemo 15 years ago -- PPI QD ordered here - agree. Will review w/ Dr. Griffith - seems pt not too interested in pursuing further eval w/ EGD at this time. ?barium swallow Update: Per office records, EGD in 11/2003 (Dr. Calvillo): normal upper and middle esophagus, Schatzki's ring dilated to 54Fr, hiatal hernia, erythematous gastropathy (neg KARYN test), and normal duodenum. RIMMA GOULD March 14, 2017 13:50
--- NOTE | 2017-03-14 14:31 | PDOC ---
Provider Note Provider Note [id number] abnl ct of chest hx of lung ca asp pneumonitits vs pneumonia levoquin for [address] in 4-6 wks. SANDRA NAGEL MD March 14, 2017 14:31
[2017-03-14 15:00] VITALS: BP 130/60
--- NOTE | 2017-03-14 15:35 | CONS ---
DATE OF CONSULTATION: 03/14/2017 I was asked to see this 87-year-old gentleman for abnormal CT of the chest. HISTORY OF PRESENT ILLNESS: He has a history of 30-40 pack year smoking, stopped smoking about 40 years ago. He was diagnosed with lung cancer about 15 years ago and [facility] He usually gets his care at [facility], but he moved to [place], [place] about a month ago. He does not have copd. His last CAT scan was about 10 years ago. He denies weight loss. For the past 2 months, he has had problem swallowing. Yesterday, while he was eating an omelet, he had trouble swallowing and also he had possible aspiration with cough. He states that he is back to his normal. He denies fever or chills. He has not been diagnosed with COPD or asthma and is not on any inhalers. PAST MEDICAL HISTORY: History of esophageal dilatation; lung cancer, status post chemotherapy; hypertension; hypercholesterolemia. ALLERGIES: PENICILLIN. MEDICATIONS: Currently, he is on DuoNeb, levofloxacin, Lipitor, Protonix, Norvasc, Robitussin DM. SOCIAL HISTORY: History of 30-40 pack year smoking, stopped smoking 40 years ago. FAMILY HISTORY: Positive for hypertension. REVIEW OF SYSTEMS: As mentioned as above, other systems were otherwise negative. PHYSICAL EXAMINATION: VITAL SIGNS: His O2 saturation on 3 liters of oxygen is 97%, respiratory rate 18, heart rate 84, blood pressure 131/57, temperature 98.4. HEENT: Normocephalic, atraumatic. Pupils equal, round, reactive to light. Throat is clear. Nose is clear. NECK: There is no JVD, lymphadenopathy, or thyromegaly. CARDIOVASCULAR: Regular rate and rhythm. PMI is nondisplaced. CHEST: Inspection is normal. LUNGS: There are bibasilar crackles, dullness at the bases. ABDOMEN: Soft. Bowel sounds are good. There is no mass. EXTREMITIES: There is no edema. LYMPHATICS: There is no lymphadenopathy. NEUROLOGIC: Alert and oriented. SKIN: Chronic changes. LABORATORY DATA: I reviewed the following lab data. IMAGING DATA: CT of the chest showed left apical soft tissue thickening or mass with volume loss and retraction of the left hilum, bronchiectasis, nodular lung infiltrate within the right middle lobe and right lower lobe with more prominent focus of lung consolidation within the posterior segment of right lower lobe. LABORATORY DATA: WBC 14.8, hemoglobin 11.7, platelets 184. Sodium 137, potassium 3.3, chloride 99, CO2 of 31, glucose 138, BUN 25, creatinine 1.3. Total bilirubin 0.4, AST 15, ALT 19, alkaline phosphatase 91, and troponin less than 0.01. BNP 145. IMPRESSION: 1. Abnormal CT of the chest. His left upper lobe changes could be secondary to previous cancer and radiation. His right lower lobe nodular infiltrate could be secondary to aspiration pneumonitis versus pneumonia. All the changes could be secondary to recurrence of his cancer. 2. History of esophageal stricture with swallowing problem. 3. History of lung cancer, status post chemo and radiation. 4. Leukocytosis. 5. Ex-smoker. 6. Hyperkalemia. PLAN AND RECOMMENDATIONS: 1. Titrate FiO2 to keep O2 saturation 92%. 2. Bronchodilator. 3. I agree with Levaquin. I do recommend total 10 days of Levaquin. 4. I do recommend EGD. 5. Repeat CT of the chest in 4-6 weeks. 6. GI is consulted. I agree with EGD. 7. The findings and recommendations were discussed with the patient. He understood and agreed to proceed with the plan. I have answered all of his questions. Thank you very much for allowing me to participate in care of this very nice gentleman. SANDRA NAGEL M.D. : Madhu JOB#: [id number] / [id number] REYNA
[2017-03-14 19:10] VITALS: BP 129/62
[2017-03-14] MEDS ORDERED: ATORVASTATIN CALCIUM 10 MG TABLET. PO SCH (21:00)
[2017-03-14 23:00] VITALS: BP 112/56
[2017-03-15] MEDS: PANTOPRAZOLE 40 MG TABLET.DR. PO SCH (05:20)
[2017-03-15 07:00] VITALS: BP 110/60
[2017-03-15] MEDS: amLODIPine BESYLATE 10 MG TABLET PO SCH (08:29)
[2017-03-15] MEDS: hydroCHLOROthiazide 12.5 MG CAPSULE PO SCH (08:30)
[2017-03-15 09:21] LABS: BASO # 0.1 x10^3/uL (0.0-0.2); BASO % 0 % (0-3); EOS % 1 % (0-3); HEMATOCRIT 32.4 % (39.0-53.0); HEMOGLOBIN 10.9 g/dL (13.0-17.5); LYMPH # 0.4 x10^3/uL (1.0-4.8); LYMPH % 3 % (24-48); MEAN CORPUSCULAR HEMOGLOBIN 32 pg (25-35); MEAN CORPUSCULAR HGB CONC 34 g/dL (31-37); MEAN CORPUSCULAR VOLUME 94 fL (79-100); MONO % 6 % (0-9); NEUT % 90 % (31-73); PLATELET COUNT 163 x10^3/uL (140-400); RED BLOOD COUNT 3.45 x10^6/uL (4.30-5.70); RED CELL DISTRIBUTION WIDTH 14.5 % (11.5-14.5); WHITE BLOOD COUNT 15.4 x10^3/uL (4.0-11.0)
[2017-03-15 09:26] LABS: CREATININE 1.2 mg/dL (0.7-1.3); GFR 57.4; POTASSIUM 3.5 mmol/L (3.5-5.1)
[2017-03-15] MEDS ORDERED: LEVO500T38 PO (09:42)
--- NOTE | 2017-03-15 09:44 | PDOC3 ---
Discharge Summary Visit Information Date of Admission: March 13, 2017 Date of Discharge: March 15, 2017 Admitting Diagnosis Comment: 1, CAP 2. SIRS NO Sepsis POA 3, Acute respi failure POA, resolved sec to # 1 4. HTN, dyslipidemia, hx esoph CA, ex smoker - all chronci stable Final Diagnosis Problems Medical Problems: (1) Aspiration pneumonia Status: Acute (2) Community acquired bacterial pneumonia Status: Acute (3) Fever Status: Acute (4) Hypokalemia Status: Acute (5) Leukocytosis Status: Acute (6) Sepsis Status: Acute (7) Tachycardia Status: Acute Brief Hospital Course Allergies Allergies Coded Allergies Type Severity Reaction Last Updated Verified Penicillins Allergy Unknown SWELLING 03/13/17 Yes Vital Signs Vital Signs Date Time Temp Pulse Resp B/P (MAP) Pulse Ox O2 Delivery O2 Flow Rate FiO2 03/15/17 08:29 106 138/61 03/15/17 08:00 Room Air 03/15/17 07:00 98.0 20 98 98.0 03/14/17 23:00 2.0 Lab Results Laboratory Tests Test 03/13/17 17:45 03/13/17 18:10 03/13/17 19:46 03/13/17 21:05 White Blood Count 14.8 x10^3/uL (4.0-11.0) Red Blood Count 3.82 x10^6/uL (4.30-5.70) Hemoglobin 11.7 g/dL (13.0-17.5) Hematocrit 36.3 % (39.0-53.0) Mean Corpuscular Volume 95 fL (79-100) Mean Corpuscular Hemoglobin 31 pg (25-35) Mean Corpuscular Hemoglobin Concent 32 g/dL (31-37) Red Cell Distribution Width 14.9 % (11.5-14.5) Platelet Count 184 x10^3/uL (140-400) Neutrophils (%) (Auto) 93 % (31-73) Lymphocytes (%) (Auto) 3 % (24-48) Monocytes (%) (Auto) 4 % (0-9) Eosinophils (%) (Auto) 0 % (0-3) Basophils (%) (Auto) 0 % (0-3) Neutrophils # (Auto) 13.7 x10^3uL (1.8-7.7) Lymphocytes # (Auto) 0.5 x10^3/uL (1.0-4.8) Monocytes # (Auto) 0.5 x10^3/uL (0.0-1.1) Eosinophils # (Auto) 0.0 x10^3/uL (0.0-0.7) Basophils # (Auto) 0.0 x10^3/uL (0.0-0.2) Segmented Neutrophils % 82 % (35-66) Band Neutrophils % 11 % (0-9) Lymphocytes % 1 % (24-48) Monocytes % 6 % (0-10) Platelet Estimate Adequate (ADEQUATE) Prothrombin Time 12.3 SEC (11.7-14.0) Prothromb Time International Ratio 1.0 (0.8-1.1) Activated Partial Thromboplast Time 28 SEC (24-38) Sodium Level 137 mmol/L (136-145) Potassium Level 3.3 mmol/L (3.5-5.1) Chloride Level 99 mmol/L (98-107) Carbon Dioxide Level 31 mmol/L (21-32) Anion Gap 7 (6-14) Blood Urea Nitrogen 25 mg/dL (8-26) Creatinine 1.3 mg/dL (0.7-1.3) Estimated GFR (Cockcroft-Gault) 52.3 BUN/Creatinine Ratio 19 (6-20) Glucose Level 138 mg/dL (70-99) Lactic Acid Level 2.0 mmol/L (0.4-2.0) 1.4 mmol/L (0.4-2.0) Calcium Level 9.1 mg/dL (8.5-10.1) Total Bilirubin 0.4 mg/dL (0.2-1.0) Aspartate Amino Transf (AST/SGOT) 15 U/L (15-37) Alanine Aminotransferase (ALT/SGPT) 19 U/L (16-63) Alkaline Phosphatase 91 U/L (46-116) Troponin I Quantitative < 0.017 ng/mL (0.000-0.055) QO-Vik-D-Type Natriuretic Peptide 145 pg/mL (0-449) Total Protein 7.3 g/dL (6.4-8.2) Albumin 3.6 g/dL (3.4-5.0) Albumin/Globulin Ratio 1.0 (1.0-1.7) O2 Saturation 97 % (92-99) Arterial Blood pH 7.42 (7.35-7.45) Arterial Blood pCO2 at Patient Temp 47 mmHg (35-46) Arterial Blood pO2 at Patient Temp 92 mmHg (65-108) Arterial Blood HCO3 30 mmol/L (21-28) Arterial Blood Base Excess 4 mmol/L (-3-3) FiO2 100 Urine Collection Type Unknown Urine Color Yellow Urine Clarity Clear Urine pH 5.5 Urine Specific [place] 1.025 Urine Protein Negative mg/dL (NEG-TRACE) Urine Glucose (UA) Negative mg/dL (NEG) Urine Ketones (Stick) Negative mg/dL (NEG) Urine Blood Negative (NEG) Urine Nitrite Negative (NEG) Urine Bilirubin Negative (NEG) Urine Urobilinogen Dipstick 0.2 mg/dL (0.2 mg/dL) Urine Leukocyte Esterase Negative (NEG) Urine RBC 0 /HPF (0-2) Urine WBC 1-4 /HPF (0-4) Urine Bacteria 0 /HPF (0-FEW) Urine Hyaline Casts Few /HPF Urine Mucus Mod /LPF Test 03/14/17 01:15 03/14/17 07:10 03/15/17 08:30 Troponin I Quantitative 0.020 ng/mL (0.000-0.055) < 0.017 ng/mL (0.000-0.055) Sodium Level 136 mmol/L (136-145) Potassium Level 3.5 mmol/L (3.5-5.1) Chloride Level 101 mmol/L (98-107) Carbon Dioxide Level 29 mmol/L (21-32) Anion Gap 6 (6-14) Blood Urea Nitrogen 16 mg/dL (8-26) Creatinine 1.2 mg/dL (0.7-1.3) Estimated GFR (Cockcroft-Gault) 57.4 Glucose Level 119 mg/dL (70-99) Calcium Level 9.0 mg/dL (8.5-10.1) Laboratory Tests Test 03/15/17 08:30 Sodium Level 136 mmol/L (136-145) Potassium Level 3.5 mmol/L (3.5-5.1) Chloride Level 101 mmol/L (98-107) Carbon Dioxide Level 29 mmol/L (21-32) Anion Gap 6 (6-14) Blood Urea Nitrogen 16 mg/dL (8-26) Creatinine 1.2 mg/dL (0.7-1.3) Estimated GFR (Cockcroft-Gault) 57.4 Glucose Level 119 mg/dL (70-99) Calcium Level 9.0 mg/dL (8.5-10.1) Brief Hospital Course Mr. Prescott is a 87 old [sex] who presented with [ ]87 y.o male with good ADLs and IADLs, son lives with him at his home, went tO ER last night bec of above CC. Found to have pNA on CXR and CT scan. Feels better, NOw wants to go home, HAs not been seen yet by pulmo, no PT yet,. Denies O2 at home, ex smoker quit 30-40b yrs ago. WBC 14.8, K 3,.3, rest of labs ok CXR I have personally reviewed VS here ok, afebrile. HAs not ambulated yet Co managed with puilmo, recommeded 10 days PO levaquin Pt wanting to go home HAd some dysphagia, hx esoph stricture, GI consulted, not interested in EGD or further eval Stable for home RX inc [place] Discharge Information Condition at Discharge: Improved, Stable Disposition/Orders: D/C to Home Scheduled Amlodipine Besylate (Norvasc), 10 MG PO DAILY, (Reported) Lovastatin (Lovastatin), 1 TAB PO DAILY, (Reported) Omeprazole (Omeprazole), 1 CAP PO DAILY, (Reported) [Hctz], 12.5 MG PO DAILY, (Reported) LJ SINGLETARY MD March 15, 2017 09:44
--- NOTE | 2017-03-15 10:13 | PDOC ---
PULMONARY PROGRESS NOTES Subjective no sob, no cough, no pain Vitals Vital Signs Date Time Temp Pulse Resp B/P (MAP) Pulse Ox O2 Delivery O2 Flow Rate FiO2 03/15/17 08:29 106 138/61 03/15/17 08:00 Room Air 03/15/17 07:00 98.0 20 98 98.0 03/14/17 23:00 2.0 ROS: No Nausea, No Chest Pain, No Abdominal Pain General: Alert HEENT: Other (nc at perrl ) Lungs: Clear Cardiovascular: S1, S2 Abdomen: Soft, Non-tender Neuro Exam: Alert, Oriented Extremities: No Edema Skin: Warm Labs Laboratory Tests Test 03/13/17 17:45 03/13/17 18:10 03/13/17 19:46 03/13/17 21:05 White Blood Count 14.8 x10^3/uL (4.0-11.0) Red Blood Count 3.82 x10^6/uL (4.30-5.70) Hemoglobin 11.7 g/dL (13.0-17.5) Hematocrit 36.3 % (39.0-53.0) Mean Corpuscular Volume 95 fL (79-100) Mean Corpuscular Hemoglobin 31 pg (25-35) Mean Corpuscular Hemoglobin Concent 32 g/dL (31-37) Red Cell Distribution Width 14.9 % (11.5-14.5) Platelet Count 184 x10^3/uL (140-400) Neutrophils (%) (Auto) 93 % (31-73) Lymphocytes (%) (Auto) 3 % (24-48) Monocytes (%) (Auto) 4 % (0-9) Eosinophils (%) (Auto) 0 % (0-3) Basophils (%) (Auto) 0 % (0-3) Neutrophils # (Auto) 13.7 x10^3uL (1.8-7.7) Lymphocytes # (Auto) 0.5 x10^3/uL (1.0-4.8) Monocytes # (Auto) 0.5 x10^3/uL (0.0-1.1) Eosinophils # (Auto) 0.0 x10^3/uL (0.0-0.7) Basophils # (Auto) 0.0 x10^3/uL (0.0-0.2) Segmented Neutrophils % 82 % (35-66) Band Neutrophils % 11 % (0-9) Lymphocytes % 1 % (24-48) Monocytes % 6 % (0-10) Platelet Estimate Adequate (ADEQUATE) Prothrombin Time 12.3 SEC (11.7-14.0) Prothromb Time International Ratio 1.0 (0.8-1.1) Activated Partial Thromboplast Time 28 SEC (24-38) Sodium Level 137 mmol/L (136-145) Potassium Level 3.3 mmol/L (3.5-5.1) Chloride Level 99 mmol/L (98-107) Carbon Dioxide Level 31 mmol/L (21-32) Anion Gap 7 (6-14) Blood Urea Nitrogen 25 mg/dL (8-26) Creatinine 1.3 mg/dL (0.7-1.3) Estimated GFR (Cockcroft-Gault) 52.3 BUN/Creatinine Ratio 19 (6-20) Glucose Level 138 mg/dL (70-99) Lactic Acid Level 2.0 mmol/L (0.4-2.0) 1.4 mmol/L (0.4-2.0) Calcium Level 9.1 mg/dL (8.5-10.1) Total Bilirubin 0.4 mg/dL (0.2-1.0) Aspartate Amino Transf (AST/SGOT) 15 U/L (15-37) Alanine Aminotransferase (ALT/SGPT) 19 U/L (16-63) Alkaline Phosphatase 91 U/L (46-116) Troponin I Quantitative < 0.017 ng/mL (0.000-0.055) FY-Prx-V-Type Natriuretic Peptide 145 pg/mL (0-449) Total Protein 7.3 g/dL (6.4-8.2) Albumin 3.6 g/dL (3.4-5.0) Albumin/Globulin Ratio 1.0 (1.0-1.7) O2 Saturation 97 % (92-99) Arterial Blood pH 7.42 (7.35-7.45) Arterial Blood pCO2 at Patient Temp 47 mmHg (35-46) Arterial Blood pO2 at Patient Temp 92 mmHg (65-108) Arterial Blood HCO3 30 mmol/L (21-28) Arterial Blood Base Excess 4 mmol/L (-3-3) FiO2 100 Urine Collection Type Unknown Urine Color Yellow Urine Clarity Clear Urine pH 5.5 Urine Specific [place] 1.025 Urine Protein Negative mg/dL (NEG-TRACE) Urine Glucose (UA) Negative mg/dL (NEG) Urine Ketones (Stick) Negative mg/dL (NEG) Urine Blood Negative (NEG) Urine Nitrite Negative (NEG) Urine Bilirubin Negative (NEG) Urine Urobilinogen Dipstick 0.2 mg/dL (0.2 mg/dL) Urine Leukocyte Esterase Negative (NEG) Urine RBC 0 /HPF (0-2) Urine WBC 1-4 /HPF (0-4) Urine Bacteria 0 /HPF (0-FEW) Urine Hyaline Casts Few /HPF Urine Mucus Mod /LPF Test 03/14/17 01:15 03/14/17 07:10 03/15/17 08:30 Troponin I Quantitative 0.020 ng/mL (0.000-0.055) < 0.017 ng/mL (0.000-0.055) White Blood Count 15.4 x10^3/uL (4.0-11.0) Red Blood Count 3.45 x10^6/uL (4.30-5.70) Hemoglobin 10.9 g/dL (13.0-17.5) Hematocrit 32.4 % (39.0-53.0) Mean Corpuscular Volume 94 fL (79-100) Mean Corpuscular Hemoglobin 32 pg (25-35) Mean Corpuscular Hemoglobin Concent 34 g/dL (31-37) Red Cell Distribution Width 14.5 % (11.5-14.5) Platelet Count 163 x10^3/uL (140-400) Neutrophils (%) (Auto) 90 % (31-73) Lymphocytes (%) (Auto) 3 % (24-48) Monocytes (%) (Auto) 6 % (0-9) Eosinophils (%) (Auto) 1 % (0-3) Basophils (%) (Auto) 0 % (0-3) Neutrophils # (Auto) 13.9 x10^3uL (1.8-7.7) Lymphocytes # (Auto) 0.4 x10^3/uL (1.0-4.8) Monocytes # (Auto) 0.9 x10^3/uL (0.0-1.1) Eosinophils # (Auto) 0.1 x10^3/uL (0.0-0.7) Basophils # (Auto) 0.1 x10^3/uL (0.0-0.2) Sodium Level 136 mmol/L (136-145) Potassium Level 3.5 mmol/L (3.5-5.1) Chloride Level 101 mmol/L (98-107) Carbon Dioxide Level 29 mmol/L (21-32) Anion Gap 6 (6-14) Blood Urea Nitrogen 16 mg/dL (8-26) Creatinine 1.2 mg/dL (0.7-1.3) Estimated GFR (Cockcroft-Gault) 57.4 Glucose Level 119 mg/dL (70-99) Calcium Level 9.0 mg/dL (8.5-10.1) Laboratory Tests Test 03/15/17 08:30 White Blood Count 15.4 x10^3/uL (4.0-11.0) Red Blood Count 3.45 x10^6/uL (4.30-5.70) Hemoglobin 10.9 g/dL (13.0-17.5) Hematocrit 32.4 % (39.0-53.0) Mean Corpuscular Volume 94 fL (79-100) Mean Corpuscular Hemoglobin 32 pg (25-35) Mean Corpuscular Hemoglobin Concent 34 g/dL (31-37) Red Cell Distribution Width 14.5 % (11.5-14.5) Platelet Count 163 x10^3/uL (140-400) Neutrophils (%) (Auto) 90 % (31-73) Lymphocytes (%) (Auto) 3 % (24-48) Monocytes (%) (Auto) 6 % (0-9) Eosinophils (%) (Auto) 1 % (0-3) Basophils (%) (Auto) 0 % (0-3) Neutrophils # (Auto) 13.9 x10^3uL (1.8-7.7) Lymphocytes # (Auto) 0.4 x10^3/uL (1.0-4.8) Monocytes # (Auto) 0.9 x10^3/uL (0.0-1.1) Eosinophils # (Auto) 0.1 x10^3/uL (0.0-0.7) Basophils # (Auto) 0.1 x10^3/uL (0.0-0.2) Sodium Level 136 mmol/L (136-145) Potassium Level 3.5 mmol/L (3.5-5.1) Chloride Level 101 mmol/L (98-107) Carbon Dioxide Level 29 mmol/L (21-32) Anion Gap 6 (6-14) Blood Urea Nitrogen 16 mg/dL (8-26) Creatinine 1.2 mg/dL (0.7-1.3) Estimated GFR (Cockcroft-Gault) 57.4 Glucose Level 119 mg/dL (70-99) Calcium Level 9.0 mg/dL (8.5-10.1) Medications Active Scripts Medications Dose Route/Sig Max Daily Dose Days Date Category [Hctz] 12.5 Mg PO DAILY 03/13/17 Reported Omeprazole 20 Mg Capsule.dr 1 Cap PO DAILY 03/13/17 Reported Lovastatin 20 Mg Tablet 1 Tab PO DAILY 03/13/17 Reported Norvasc (Amlodipine Besylate) 10 Mg Tablet 10 Mg PO DAILY 03/13/[address] reviewed, Impression . IMPRESSION: 1. Abnormal CT of the chest. His left upper lobe changes could be secondary to previous cancer and radiation. His right lower lobe nodular infiltrate could be secondary to aspiration pneumonitis versus pneumonia. All the changes could be secondary to recurrence of his cancer. 2. History of esophageal stricture with swallowing problem. 3. History of lung cancer, status post chemo and radiation. 4. Leukocytosis. 5. Ex-smoker. 6. Hyperkalemia. Plan . PLAN AND RECOMMENDATIONS: 1. Titrate FiO2 to keep O2 saturation 92%. off 02 now 2. Bronchodilator. 3. I agree with Levaquin for total of 10 days 4. cont not smoking 5. Repeat CT of the chest in 4-6 weeks, will need fu w Dr. Borja in 4-6 wks. 6. GI is consulted. I agree with EGD. 7. The findings and recommendations were discussed with the patient. He understood and agreed to proceed with the plan. discussed w primary SANDRA Torres MD March 15, 2017 10:13
[2017-03-15 11:00] VITALS: BP 130/60
== END 2017-03-15 12:25 | disposition home or self-care (01) | DRG 193 ==
LOC: ER 17:21 → 5 SOUTH 19:02
PROVIDERS: ADMIT Internal Medicine; ATTEND Internal Medicine
DX: J18.9 Pneumonia, unspecified organism (principal); J96.00 Acute respiratory failure, unspecified whether with hypoxia or hypercapnia; J47.0 Bronchiectasis with acute lower respiratory infection; E78.00 Pure hypercholesterolemia, unspecified; E78.5 Hyperlipidemia, unspecified; E87.6 Hypokalemia; I10 Essential (primary) hypertension; K21.9 Gastro-esophageal reflux disease without esophagitis; Z85.118 Personal history of other malignant neoplasm of bronchus and lung; Z92.21 Personal history of antineoplastic chemotherapy; Z92.3 Personal history of irradiation; Z79.82 Long term (current) use of aspirin; Z82.49 Family history of ischemic heart disease and other diseases of the circulatory system; Z87.891 Personal history of nicotine dependence; Z85.01 Personal history of malignant neoplasm of esophagus; Z88.0 Allergy status to penicillin
CPT/HCPCS: 36415; 36600; 71010; 71260; 80048; 80053; 81001; 82805; 83605; 83880; 84484; 85007; 85027; 85610; 85730; 87040; 93005; 94640; 94760; 96361; 96374; 96375; J1956; J3490; J7030; J7620; 92610; 99285-25